=== PATIENT | female | born 1955 | race Caucasian/White ===

== ENCOUNTER 2020-09-15 01:58 | Outpatient (CLI) | payer BC, SELFPAY ==
[2020-09-15] MEDS: Omnipaque 350 MG/ML 50 ML BTL PO (08:32)
[2020-09-15] MEDS: Breeza Beverage 473 ML BTL PO (08:33)
--- NOTE | 2020-09-15 09:45 | DI.CT_ITS ---
EXAM: CT ABDOMEN W CLINICAL HISTORY: ACUTE PANCREATITIS,K85.90,EPIGASTRIC PAIN TECHNIQUE: Imaging Protocol: Axial computed tomography images with coronal and sagittal reformatted images were created and reviewed CONTRAST MATERIAL: Intravenous: Omnipaque 350 Contrast volume:100 mL Oral: Yes FINDINGS: ABDOMEN: Lung Bases: Normal where visualized. Liver: Normal density. No measurable mass. Portal, Superior Mesenteric, and Splenic Veins: Unremarkable. Gallbladder and Biliary Tract: No radiodense calculus or dilation. Pancreas: Normal density, no abnormal calcifications or inflammatory process. Spleen: Normal. Adrenals: No masses seen. Kidneys: Normal size, contour and axis. No radiodense stones or obstructive uropathy. There are tiny hypodensities seen in the kidneys. They are too small for further characterization but likely reflec t small cysts. Abdominal Aorta: Abdominal portion non-dilated. Mild atherosclerosis. Bowel: No obstruction or bowel wall thickening. Colonic diverticulosis but no evidence of acute dive rticulitis. Peritoneal Cavity: No ascites, collection or mesenteric inflammatory response. Lymph Nodes: Within normal limits. Bones: Mild degenerative changes. Soft Tissues: Small fat containing umbilical hernia. IMPRESSION: Unremarkable CT scan of the abdomen. No CT evidence of acute pancreatitis. RADIATION DOSE DELIVERED: 545.11mGy.cm Total DLP DATA REPOSITORY: All CT scans at this facility are submitted to the National Radiology Data Registry (NRDR) Dose Index Registry (DIR) with the [employer] ([employer]). RADIATION OPTIMIZATION: All CT scans at this facility use at least one of these dose optimization te chniques: automated exposure control; mA and/or kV adjustment per patient size (includes targeted exa ms where dose is matched to clinical indication); or iterative reconstruction.
[2020-09-15] MEDS: Omnipaque 350 MG/ML 100 ML BTL IJ (09:51)
[2020-09-15] MEDS: Normal Saline - Diluent 50 ML VIAL IV (09:51)
== END 2020-09-15 02:18 ==
PROVIDERS: PCP Physician Assistant Medical; Visit Provider Physician Assistant Medical
DX: R10.13 Epigastric pain
CPT/HCPCS: 74160; J3490; Q9967